=== PATIENT | female | born 1935 | race African-American/Black ===

== ENCOUNTER 2022-07-22 20:39 | Inpatient (IN) ==
[2022-07-22] MEDS ORDERED: SODIUM CHLORIDE 0.9% 2,050 ML IV ONE (21:56)
[2022-07-23 00:19] LABS: Basophils % 0.1 % (0.0-0.8); Immature Granulocytes % 1.5 %; Immature Granulocytes Absolute 0.39 #; Lymphocytes # 0.6 10*3/uL (1.4-4.0); Lymphocytes % 2.3 % (21.3-54.2); Mean Corpuscular HGB Conc 27.2 GM/DL (32-36); Mean Corpuscular Volume 56.6 FL (87-102); Mean Platelet Volume 10.3 FL (9.6-12.0); Monocytes # 0.6 10*3/uL (0.11-0.8); Monocytes % 2.1 % (1.7-12.7); NRBC # 1.36 10*3/uL; Platelet Count 606 T/CUMM (130-400); Red Blood Count 1.82 MC/CUMM (3.8-5.5); White Blood Count 25.67 T/CUMM (4-12)
[2022-07-23 00:22] LABS: Hemoglobin 2.8 GM/DL (12.0-16.0)
[2022-07-23 00:23] LABS: Hematocrit 10.3 VOL% (35.7-47.0)
[2022-07-23 00:25] LABS: Alanine Aminotransferase 312 U/L (13-56); Albumin 2.5 G/DL (3.4-5.0); Alkaline Phosphatase 62 U/L (45-117); Aspartate Amino Transferase 661 U/L (0-37); Bilirubin,Total < 0.39 MG/DL (0.20-1.00); Blood Urea Nitrogen 70 MG/DL (7-18); Calcium 9.3 MG/DL (8.5-10.1); Carbon Dioxide 23 MMOL/L (21-32); Chloride 99 MMOL/L (98-107); Glucose 157 MG/DL (74-106); Osmolality,Calculated 296.8 MOS/KG (273-304); Potassium 5.1 MMOL/L (3.5-5.1); Sodium 137 MMOL/L (136-145); Total Protein 5.8 G/DL (6.4-8.2)
[2022-07-23] MEDS ORDERED: SODIUM CHLORIDE 0.9% 1,000 ML IV PRN (00:26)
[2022-07-23 00:48] LABS: Lymphocytes 3 % (20-55); Nucleated Red Blood Cells 9 /100 WBC (0-5); Total Cells Counted 100
[2022-07-23 00:50] LABS: Hypochromia 2+; Microcytosis 2+; Platelet Estimate Increased; Polychromasia Few
[2022-07-23 00:51] LABS: Anisocytosis 2+
[2022-07-23] MEDS ORDERED: NOREPINEPHRINE 4 MG/4 ML VIAL IV ONE (02:33)
[2022-07-23] MEDS ORDERED: MIDAZOLAM 10 MG/2 ML VIAL ONE (02:43)
[2022-07-23] MEDS ORDERED: VECURONIUM 10 MG VIAL IV STA (02:45)
[2022-07-23] MEDS ORDERED: ETOMIDATE 20 MG/10 ML VIAL IV STA (02:45)
[2022-07-23 03:04] LABS: Arterial Base Excess iSTAT -3 MMOL/L (-2.5-2.5); Arterial Bicarbonate iSTAT 21.6 MMOL/L (20-26); Arterial O2 Saturation iSTAT 100 % (95-100); Arterial PCO2 iSTAT 31 MM HG (35-48); Arterial PO2 iSTAT 444 MM HG (80-95); Arterial Total CO2 iSTAT 23 MMO/L (23-27); Arterial pH iSTAT 7.449 (7.35-7.45)
[2022-07-23 03:10] LABS: Barbiturates Screen,Urine Negative (Negative); Benzodiazepines Screen,Urine Negative (Negative); Cannabinoid Screen,Urine Negative (Negative); Opiate Screen,Urine Negative (Negative); Phencyclidine Screen,Urine Negative (Negative)
[2022-07-23 03:11] LABS: Amorphous Crystals,Urine Occasional /HPF (Few); Bacteria,Urine Occasional /HPF (Few); Hyaline Casts,Urine 178 /LPF (0-3); Mucus,Urine Occasional /LPF (Occasional); RBC,Urine 7 /HPF (0-4); Squamous Epithelial Cell,Urine Moderate /HPF (0-10)
[2022-07-23 03:14] LABS: Glucose,Urine (UA) Negative (Negative); Ketones,Urine Negative (Negative); Nitrite,Urine Negative (Negative); Protein,Urine 30 mg/dL (Negative); Urine Appearance Slightly Cloudy (Clear); Urine Color Yellow (Yellow); Urine Specific Gravity > 1.030 (1.001-1.035); Urine pH 5.5 (4.5-8.0)
[2022-07-23 03:15] LABS: Bilirubin,Urine Negative (Negative); Blood, Urine Trace mg/dL (Negative); Urine Urobilinogen 0.2 eU/dL (<2.0)
[2022-07-23] MEDS ORDERED: diphenhydrAMINE 50 MG/1 ML VIAL ONE (04:32)
[2022-07-23] MEDS ORDERED: methylPREDNISolone SOD SUC 125 MG/2 ML VIAL ONE (04:32)
[2022-07-23] MEDS ORDERED: FAMOTIDINE 20 MG/2 ML VIAL IV ONE (04:33)
[2022-07-23] MEDS ORDERED: ALBUTEROL 2.5 MG/3 ML NEB RESP TX PRN (05:23)
[2022-07-23] MEDS ORDERED: ONDANSETRON 4 MG/2 ML VIAL IV PRN (05:24)
[2022-07-23] MEDS ORDERED: LACTULOSE 20 GM/30 ML UDCUP PO PRN (05:24)
[2022-07-23] MEDS ORDERED: ACETAMINOPHEN 325 MG TABLET PO PRN (05:24)
[2022-07-23] MEDS ORDERED: VANCOMYCIN INJ 1,000 MG in SODIUM CHLORIDE 0.9% 250 ML IV PRN (05:30)
[2022-07-23] MEDS ORDERED: PIPERACILLIN/TAZOBACTAM 3,375 MG in SODIUM CHLORIDE 0.9% 100 ML IV SCH (06:00)
[2022-07-23] MEDS ORDERED: VANCOMYCIN INJ 1,750 MG in SODIUM CHLORIDE 0.9% 500 ML IV ONE (06:30)
[2022-07-23] MEDS ORDERED: DEXTROSE 10% 250 ML BAG IV PRN (06:49)
[2022-07-23] MEDS ORDERED: GLUCAGON 1 MG VIAL IM PRN (06:49)
[2022-07-23] MEDS ORDERED: DEXTROSE 50% 25 GM/50 ML VIAL IV PRN (06:49)
[2022-07-23 07:08] LABS: Basophils % 0.1 % (0.0-0.8); Hematocrit 21.3 VOL% (35.7-47.0); Hemoglobin 6.6 GM/DL (12.0-16.0); Immature Granulocytes % 1.9 %; Immature Granulocytes Absolute 0.48 #; Lymphocytes # 0.1 10*3/uL (1.4-4.0); Lymphocytes % 0.4 % (21.3-54.2); Mean Corpuscular Volume 70.5 FL (87-102); Mean Platelet Volume 10.1 FL (9.6-12.0); Monocytes # 0.5 10*3/uL (0.11-0.8); Monocytes % 2.1 % (1.7-12.7); NRBC # 3.03 10*3/uL; Neutrophils % 95.5 % (38.7-73.9); Platelet Count 561 T/CUMM (130-400); Red Blood Count 3.02 MC/CUMM (3.8-5.5)
[2022-07-23 07:17] LABS: INR 1.3; PT Patient Result 14.2 SECS (10.1-12.1)
[2022-07-23 07:29] LABS: Hypochromia 1+; Lymphocytes 3 % (20-55); Microcytosis 1+; Nucleated Red Blood Cells 18 /100 WBC (0-5); Platelet Estimate Increased; Total Cells Counted 100
[2022-07-23] MEDS: PIPERACILLIN/TAZOBACTAM 3,375 MG in SODIUM CHLORIDE 0.9% 100 ML IV SCH ×3 (07:38→17:30)
[2022-07-23] MEDS: LACTATED RINGERS 1,000 ML IV SCH ×4 (08:12→21:38)
[2022-07-23] MEDS: MIDAZOLAM DRIP 100 MG/100 ML PREMIX IV PRN (09:00)
[2022-07-23] MEDS ORDERED: PANTOPRAZOLE 40 MG VIAL IV SCH (09:00)
[2022-07-23] MEDS: PANTOPRAZOLE 40 MG VIAL IV SCH ×2 (10:00→20:32)
[2022-07-23] MEDS: INSULIN LISPRO 100 UNIT/ML SUBCUT SCH ×2 (14:56→19:11)
[2022-07-23] MEDS ORDERED: CALCIUM GLUCONATE RIDER 1,000 MG/50 ML PREMIX IV ONE (18:45)
[2022-07-23 19:00] LABS: Hematocrit 33.3 VOL% (35.7-47.0)
[2022-07-23 19:01] LABS: Hemoglobin 10.6 GM/DL (12.0-16.0)
[2022-07-23] MEDS: NOREPINEPHRINE DRIP 8 MG/250 ML PREMIX IV PRN ×2 (19:54→20:42)
[2022-07-23] MEDS: MENTHOL/ZINC OXIDE OINT 71 GM JAR TOP SCH (20:32)
[2022-07-24] MEDS: INSULIN LISPRO 100 UNIT/ML SUBCUT SCH ×4 (00:57→17:58)
[2022-07-24] MEDS: PIPERACILLIN/TAZOBACTAM 3,375 MG in SODIUM CHLORIDE 0.9% 100 ML IV SCH ×3 (01:46→17:27)
[2022-07-24] MEDS: LACTATED RINGERS 1,000 ML IV SCH ×3 (03:10→11:30)
[2022-07-24] MEDS: NOREPINEPHRINE DRIP 8 MG/250 ML PREMIX IV PRN ×2 (03:11→09:47)
[2022-07-24 04:18] LABS: Basophils % 0.1 % (0.0-0.8); Hematocrit 33.9 VOL% (35.7-47.0); Hemoglobin 10.7 GM/DL (12.0-16.0); Immature Granulocytes % 1.6 %; Immature Granulocytes Absolute 0.47 #; Lymphocytes # 3.1 10*3/uL (1.4-4.0); Lymphocytes % 10.5 % (21.3-54.2); Mean Corpuscular HGB Conc 31.6 GM/DL (32-36); Mean Corpuscular Volume 74.3 FL (87-102); Mean Platelet Volume 9.8 FL (9.6-12.0); Monocytes # 0.8 10*3/uL (0.11-0.8); Monocytes % 2.5 % (1.7-12.7); NRBC # 0.79 10*3/uL; Neutrophils % 85.3 % (38.7-73.9); Platelet Count 479 T/CUMM (130-400); Red Blood Count 4.56 MC/CUMM (3.8-5.5); White Blood Count 30.02 T/CUMM (4-12)
[2022-07-24 04:33] LABS: ABG Base Excess -1.1 MMOL/L (-2.5-2.5); ABG HCO3 23.5 MMOL/L (20-26); ABG Oxygen Saturation 99.8 % (95-100); ABG PCO2 26.4 MM HG (35-48); ABG PH 7.506 (7.35-7.45); ABG TCO2 18.6 MMOL/L (23-27)
[2022-07-24 04:34] LABS: Albumin 2.3 G/DL (3.4-5.0); Bilirubin,Total 2.3 MG/DL (0.20-1.00); Calcium 8.8 MG/DL (8.5-10.1); Osmolality,Calculated 306.7 MOS/KG (273-304); Potassium 4.2 MMOL/L (3.5-5.1); Total Protein 5.8 G/DL (6.4-8.2)
[2022-07-24 04:52] LABS: Acanthocytes Few; Hypochromia 1+; Lymphocytes 10 % (20-55); Microcytosis 1+; Nucleated Red Blood Cells 29 /100 WBC (0-5); Polychromasia Slight; Target Cells Slight; Total Cells Counted 100
[2022-07-24 04:53] LABS: Burr Cells Few; Spherocytes Slight
[2022-07-24 04:54] LABS: Platelet Estimate Increased
[2022-07-24 04:55] LABS: Anisocytosis 1+
[2022-07-24] MEDS ORDERED: FUROSEMIDE 40 MG/4 ML VIAL IV ONE (09:18)
[2022-07-24] MEDS: MENTHOL/ZINC OXIDE OINT 71 GM JAR TOP SCH ×2 (09:58→20:43)
[2022-07-24] MEDS: PANTOPRAZOLE 40 MG VIAL IV SCH ×2 (09:59→20:45)
[2022-07-24] MEDS ORDERED: propofoL 200 MG/20 ML VIAL IV ONE (11:13)
[2022-07-24] MEDS ORDERED: ETOMIDATE 20 MG/10 ML VIAL IV ONE (11:13)
[2022-07-24] MEDS ORDERED: BISACODYL 5 MG TABLET NG SCH (11:30)
[2022-07-24] MEDS: SODIUM HYPOCHLORITE 0.25% IRRIG 473 ML BOTTLE TOP SCH (12:26)
[2022-07-24] MEDS: MIDAZOLAM DRIP 100 MG/100 ML PREMIX IV PRN (14:11)
[2022-07-24] MEDS ORDERED: VANCOMYCIN INJ 1,000 MG in SODIUM CHLORIDE 0.9% 250 ML IV ONE (15:00)
[2022-07-25] MEDS: INSULIN LISPRO 100 UNIT/ML SUBCUT SCH ×4 (00:31→18:32)
[2022-07-25] MEDS: PIPERACILLIN/TAZOBACTAM 3,375 MG in SODIUM CHLORIDE 0.9% 100 ML IV SCH ×3 (02:01→16:56)
[2022-07-25] MEDS: NOREPINEPHRINE DRIP 8 MG/250 ML PREMIX IV PRN (04:05)
[2022-07-25 05:03] LABS: Arterial Base Excess iSTAT 1 MMOL/L (-2.5-2.5); Arterial Bicarbonate iSTAT 24.2 MMOL/L (20-26); Arterial O2 Saturation iSTAT 100 % (95-100); Arterial PCO2 iSTAT 32 MM HG (35-48); Arterial PO2 iSTAT 209 MM HG (80-95); Arterial Total CO2 iSTAT 25 MMO/L (23-27); Arterial pH iSTAT 7.484 (7.35-7.45)
[2022-07-25 05:45] LABS: Basophils % 0.1 % (0.0-0.8); Hematocrit 30.1 VOL% (35.7-47.0); Hemoglobin 9.2 GM/DL (12.0-16.0); Immature Granulocytes % 0.8 %; Immature Granulocytes Absolute 0.19 #; Lymphocytes # 0.5 10*3/uL (1.4-4.0); Mean Corpuscular HGB Conc 30.6 GM/DL (32-36); Mean Corpuscular Volume 77.2 FL (87-102); Monocytes # 0.6 10*3/uL (0.11-0.8); Monocytes % 2.3 % (1.7-12.7); NRBC # 0.64 10*3/uL; Neutrophils % 94.8 % (38.7-73.9); Platelet Count 294 T/CUMM (130-400); White Blood Count 24.33 T/CUMM (4-12)
[2022-07-25 06:22] LABS: Anisocytosis 2+; Band Neutrophils 1 % (0-10); Burr Cells 1+; Lymphocytes 4 % (20-55); Nucleated Red Blood Cells 6 /100 WBC (0-5); Platelet Estimate Normal; Total Cells Counted 100
[2022-07-25 06:23] LABS: Polychromasia Slight; Target Cells Few
[2022-07-25 06:28] LABS: Albumin 1.9 G/DL (3.4-5.0); Bilirubin,Total 1.7 MG/DL (0.20-1.00); Calcium 8.3 MG/DL (8.5-10.1); Potassium 3.5 MMOL/L (3.5-5.1)
[2022-07-25] MEDS: LACTATED RINGERS 1,000 ML IV SCH (07:49)
[2022-07-25] MEDS ORDERED: VANCOMYCIN INJ 1,000 MG in SODIUM CHLORIDE 0.9% 250 ML IV ONE (08:00)
[2022-07-25] MEDS: PANTOPRAZOLE 40 MG VIAL IV SCH ×2 (08:47→21:01)
[2022-07-25] MEDS: SODIUM HYPOCHLORITE 0.25% IRRIG 473 ML BOTTLE TOP SCH (08:49)
[2022-07-25] MEDS: MENTHOL/ZINC OXIDE OINT 71 GM JAR TOP SCH ×2 (08:49→21:01)
[2022-07-25] MEDS: ALBUTEROL/IPRATROPIUM 3 ML NEB RESP TX SCH ×2 (13:11→19:27)
[2022-07-25] MEDS: MIDAZOLAM DRIP 100 MG/100 ML PREMIX IV PRN (17:40)
[2022-07-25] MEDS ORDERED: METOPROLOL TARTRATE 5 MG/5 ML VIAL IV STA (23:41)
[2022-07-25] MEDS ORDERED: DILTIAZEM INJ 100 MG in SODIUM CHLORIDE 0.9% 100 ML IV SCH (23:59)
[2022-07-25] MEDS ORDERED: DILTIAZEM 25 MG/5 ML VIAL IV ONE (23:59)
[2022-07-26 00:15] LABS: Potassium 3.4 MMOL/L (3.5-5.1)
[2022-07-26] MEDS: ALBUTEROL/IPRATROPIUM 3 ML NEB RESP TX SCH ×4 (00:34→19:02)
[2022-07-26] MEDS: POTASSIUM CHLORIDE RIDER 20 MEQ/100 ML PREMIX IV PRN (00:38)
[2022-07-26] MEDS: INSULIN LISPRO 100 UNIT/ML SUBCUT SCH ×5 (01:04→23:56)
[2022-07-26] MEDS ORDERED: POTASSIUM CHLORIDE RIDER 10 MEQ/100 ML PREMIX IV PRN (02:37)
[2022-07-26] MEDS ORDERED: POTASSIUM CHLORIDE RIDER 10 MEQ/100 ML PREMIX IV ONE (02:39)
[2022-07-26 03:26] LABS: Arterial Base Excess iSTAT -1 MMOL/L (-2.5-2.5); Arterial Bicarbonate iSTAT 23.2 MMOL/L (20-26); Arterial O2 Saturation iSTAT 99 % (95-100); Arterial PCO2 iSTAT 37 MM HG (35-48); Arterial PO2 iSTAT 152 MM HG (80-95); Arterial Total CO2 iSTAT 24 MMO/L (23-27); Arterial pH iSTAT 7.401 (7.35-7.45)
[2022-07-26 03:41] LABS: Basophils % 0.1 % (0.0-0.8); Hemoglobin 9.8 GM/DL (12.0-16.0); Immature Granulocytes % 1.2 %; Immature Granulocytes Absolute 0.29 #; Lymphocytes # 0.3 10*3/uL (1.4-4.0); Lymphocytes % 1.1 % (21.3-54.2); Mean Corpuscular HGB Conc 29.7 GM/DL (32-36); Mean Corpuscular Volume 79.3 FL (87-102); Mean Platelet Volume 9.9 FL (9.6-12.0); Monocytes # 0.6 10*3/uL (0.11-0.8); Monocytes % 2.2 % (1.7-12.7); NRBC # 0.53 10*3/uL; Neutrophils % 95.4 % (38.7-73.9); Platelet Count 260 T/CUMM (130-400); Red Blood Count 4.16 MC/CUMM (3.8-5.5); White Blood Count 25.01 T/CUMM (4-12)
[2022-07-26 04:11] LABS: Bilirubin,Total 1.8 MG/DL (0.20-1.00); Calcium 8.5 MG/DL (8.5-10.1); Osmolality,Calculated 302.7 MOS/KG (273-304); Potassium 4.1 MMOL/L (3.5-5.1); Total Protein 4.9 G/DL (6.4-8.2)
[2022-07-26] MEDS: LACTATED RINGERS 1,000 ML IV SCH (04:19)
[2022-07-26] MEDS: PIPERACILLIN/TAZOBACTAM 3,375 MG in SODIUM CHLORIDE 0.9% 100 ML IV SCH ×3 (04:19→20:57)
[2022-07-26 05:18] LABS: Anisocytosis 1+; Band Neutrophils 2 % (0-10); Lymphocytes 2 % (20-55); Nucleated Red Blood Cells 3 /100 WBC (0-5); Platelet Estimate Adequate; Poikilocytosis 1+; Total Cells Counted 100
[2022-07-26 05:19] LABS: Burr Cells 1+; Polychromasia 1+
[2022-07-26] MEDS: SODIUM HYPOCHLORITE 0.25% IRRIG 473 ML BOTTLE TOP SCH (08:30)
[2022-07-26] MEDS: BISACODYL 5 MG TABLET NG SCH ×2 (08:30→16:01)
[2022-07-26] MEDS: PANTOPRAZOLE 40 MG VIAL IV SCH ×2 (08:30→20:55)
[2022-07-26] MEDS: MENTHOL/ZINC OXIDE OINT 71 GM JAR TOP SCH ×2 (08:30→20:59)
[2022-07-26] MEDS ORDERED: VANCOMYCIN INJ 1,000 MG in SODIUM CHLORIDE 0.9% 250 ML IV ONE (09:00)
[2022-07-26] MEDS ORDERED: POLYETHYLENE GLYCOL 3350/ELECTROLYTES 4,000 ML BOTTLE NG ONE (16:00)
[2022-07-26] MEDS: MIDAZOLAM DRIP 100 MG/100 ML PREMIX IV PRN (18:22)
[2022-07-27] MEDS: BISACODYL 5 MG TABLET NG SCH (00:08)
[2022-07-27] MEDS: ALBUTEROL/IPRATROPIUM 3 ML NEB RESP TX SCH ×4 (00:55→19:10)
[2022-07-27] MEDS ORDERED: METOPROLOL TARTRATE 5 MG/5 ML VIAL IV ONE (02:00)
[2022-07-27 04:32] LABS: Arterial Base Excess iSTAT 0 MMOL/L (-2.5-2.5); Arterial Bicarbonate iSTAT 24.7 MMOL/L (20-26); Arterial PCO2 iSTAT 39 MM HG (35-48); Arterial Total CO2 iSTAT 26 MMO/L (23-27); Arterial pH iSTAT 7.411 (7.35-7.45)
[2022-07-27 04:47] LABS: Hematocrit 28.8 VOL% (35.7-47.0); Hemoglobin 8.4 GM/DL (12.0-16.0); Immature Granulocytes % 1.1 %; Immature Granulocytes Absolute 0.25 #; Lymphocytes # 0.2 10*3/uL (1.4-4.0); Lymphocytes % 1.1 % (21.3-54.2); Mean Corpuscular HGB Conc 29.2 GM/DL (32-36); Mean Platelet Volume 9.9 FL (9.6-12.0); Monocytes # 0.5 10*3/uL (0.11-0.8); Monocytes % 2.3 % (1.7-12.7); NRBC # 0.25 10*3/uL; Neutrophils % 95.5 % (38.7-73.9); Platelet Count 217 T/CUMM (130-400); White Blood Count 21.82 T/CUMM (4-12)
[2022-07-27 05:01] LABS: Calcium 8.2 MG/DL (8.5-10.1); Osmolality,Calculated 303.4 MOS/KG (273-304); Potassium 3.3 MMOL/L (3.5-5.1)
[2022-07-27] MEDS: PIPERACILLIN/TAZOBACTAM 3,375 MG in SODIUM CHLORIDE 0.9% 100 ML IV SCH ×3 (05:02→21:23)
[2022-07-27 05:07] LABS: Nucleated Red Blood Cells 2 /100 WBC (0-5); Platelet Estimate Adequate; Total Cells Counted 100
[2022-07-27 05:08] LABS: Hypochromia Slight; Microcytosis Slight
[2022-07-27] MEDS: INSULIN LISPRO 100 UNIT/ML SUBCUT SCH ×3 (05:48→17:22)
[2022-07-27] MEDS: POTASSIUM CHLORIDE RIDER 20 MEQ/100 ML PREMIX IV PRN ×2 (06:50→08:30)
[2022-07-27] MEDS: PANTOPRAZOLE 40 MG VIAL IV SCH ×2 (08:30→21:25)
[2022-07-27] MEDS: MENTHOL/ZINC OXIDE OINT 71 GM JAR TOP SCH ×2 (08:33→21:27)
[2022-07-27] MEDS: SODIUM HYPOCHLORITE 0.25% IRRIG 473 ML BOTTLE TOP SCH (08:33)
[2022-07-27] MEDS ORDERED: ETOMIDATE 20 MG/10 ML VIAL IV ONE (09:10)
[2022-07-27] MEDS ORDERED: ROCURONIUM 50 MG/5 ML VIAL IV ONE (11:00)
[2022-07-27] MEDS ORDERED: PHENYLEPHRINE 10 MG/1 ML VIAL IV ONE (11:01)
[2022-07-27] MEDS ORDERED: SEVOFLURANE 1 UNIT/15 MINUTE INH ONE (11:12)
[2022-07-27] MEDS: VANCOMYCIN INJ 1,000 MG in SODIUM CHLORIDE 0.9% 250 ML IV SCH (13:58)
[2022-07-27] MEDS: HYDROmorphone 1 MG/1 ML SYRINGE IV PRN (13:58)
[2022-07-27] MEDS: MIDAZOLAM DRIP 100 MG/100 ML PREMIX IV PRN (15:49)
[2022-07-28] MEDS: INSULIN LISPRO 100 UNIT/ML SUBCUT SCH ×4 (00:29→19:00)
[2022-07-28 03:55] LABS: Arterial Bicarbonate iSTAT 25.7 MMOL/L (20-26); Arterial pH iSTAT 7.428 (7.35-7.45)
[2022-07-28 04:03] LABS: Basophils % 0.1 % (0.0-0.8); Eosinophils # 0.1 10*3/uL (0.0-0.87); Eosinophils % 0.3 % (0.00-10.9); Hematocrit 27.2 VOL% (35.7-47.0); Hemoglobin 8.1 GM/DL (12.0-16.0); Immature Granulocytes % 1.2 %; Immature Granulocytes Absolute 0.23 #; Lymphocytes # 0.3 10*3/uL (1.4-4.0); Lymphocytes % 1.3 % (21.3-54.2); Mean Corpuscular HGB Conc 29.8 GM/DL (32-36); Mean Corpuscular Volume 79.5 FL (87-102); Mean Platelet Volume 9.5 FL (9.6-12.0); Monocytes # 0.5 10*3/uL (0.11-0.8); Monocytes % 2.7 % (1.7-12.7); NRBC # 0.28 10*3/uL; Neutrophils % 94.4 % (38.7-73.9); Platelet Count 191 T/CUMM (130-400); Red Blood Count 3.42 MC/CUMM (3.8-5.5); White Blood Count 19.36 T/CUMM (4-12)
[2022-07-28 04:18] LABS: Albumin 1.7 G/DL (3.4-5.0); Bilirubin,Total 1.3 MG/DL (0.20-1.00); Calcium 8.2 MG/DL (8.5-10.1); Osmolality,Calculated 296.4 MOS/KG (273-304); Potassium 3.4 MMOL/L (3.5-5.1); Total Protein 4.7 G/DL (6.4-8.2)
[2022-07-28 04:43] LABS: Anisocytosis 1+; Band Neutrophils 1 % (0-10); Hypochromia 1+; Lymphocytes 1 % (20-55); Microcytosis 1+; Total Cells Counted 100
[2022-07-28 04:44] LABS: Platelet Estimate Adequate; Polychromasia Slight; Spherocytes Slight; Target Cells Slight
[2022-07-28] MEDS: PIPERACILLIN/TAZOBACTAM 3,375 MG in SODIUM CHLORIDE 0.9% 100 ML IV SCH ×3 (05:16→21:17)
[2022-07-28] MEDS: POTASSIUM CHLORIDE RIDER 20 MEQ/100 ML PREMIX IV PRN (05:17)
[2022-07-28] MEDS: NOREPINEPHRINE DRIP 8 MG/250 ML PREMIX IV PRN (07:15)
[2022-07-28] MEDS: ALBUTEROL/IPRATROPIUM 3 ML NEB RESP TX SCH ×4 (07:22→19:14)
[2022-07-28] MEDS ORDERED: MAGNESIUM SULF RIDER 4 GM/100 ML PREMIX IV PRN (07:50)
[2022-07-28] MEDS ORDERED: MAGNESIUM SULF RIDER 2 GM/50 ML PREMIX IV PRN (07:50)
[2022-07-28] MEDS: MIDAZOLAM DRIP 100 MG/100 ML PREMIX IV PRN (08:21)
[2022-07-28] MEDS ORDERED: POTASSIUM PHOSPHATE 30 MMOL in SODIUM CHLORIDE 0.9% 250 ML IV ONE (09:00)
[2022-07-28] MEDS: MENTHOL/ZINC OXIDE OINT 71 GM JAR TOP SCH ×2 (09:13→21:16)
[2022-07-28] MEDS: PANTOPRAZOLE 40 MG VIAL IV SCH ×2 (09:13→21:15)
[2022-07-28] MEDS: HYDROCORTISONE 100 MG VIAL IV SCH ×2 (09:23→17:01)
[2022-07-28] MEDS: HYDROmorphone 1 MG/1 ML SYRINGE IV PRN (09:23)
[2022-07-28] MEDS: SODIUM HYPOCHLORITE 0.25% IRRIG 473 ML BOTTLE TOP SCH (09:33)
[2022-07-28] MEDS: VANCOMYCIN INJ 1,000 MG in SODIUM CHLORIDE 0.9% 250 ML IV SCH (15:00)
[2022-07-29] MEDS: INSULIN LISPRO 100 UNIT/ML SUBCUT SCH ×4 (00:57→17:35)
[2022-07-29] MEDS: HYDROCORTISONE 100 MG VIAL IV SCH ×3 (00:57→16:56)
[2022-07-29] MEDS: ALBUTEROL/IPRATROPIUM 3 ML NEB RESP TX SCH ×4 (01:50→19:30)
[2022-07-29] MEDS: NOREPINEPHRINE DRIP 8 MG/250 ML PREMIX IV PRN (02:30)
[2022-07-29 04:00] LABS: ABG Base Excess 0.2 MMOL/L (-2.5-2.5); ABG HCO3 24.7 MMOL/L (20-26); ABG Oxygen Saturation 99.4 % (95-100); ABG PCO2 39.1 MM HG (35-48)
[2022-07-29] MEDS: PIPERACILLIN/TAZOBACTAM 3,375 MG in SODIUM CHLORIDE 0.9% 100 ML IV SCH ×3 (04:05→20:58)
[2022-07-29 04:07] LABS: Albumin 1.8 G/DL (3.4-5.0); Calcium 8.4 MG/DL (8.5-10.1); Osmolality,Calculated 299.6 MOS/KG (273-304); Potassium 4.5 MMOL/L (3.5-5.1); Total Protein 5.3 G/DL (6.4-8.2)
[2022-07-29 04:16] LABS: Basophils % 0.1 % (0.0-0.8); Hematocrit 28.7 VOL% (35.7-47.0); Hemoglobin 8.2 GM/DL (12.0-16.0); Immature Granulocytes % 2.1 %; Immature Granulocytes Absolute 0.53 #; Lymphocytes # 0.1 10*3/uL (1.4-4.0); Lymphocytes % 0.6 % (21.3-54.2); Mean Corpuscular HGB Conc 28.6 GM/DL (32-36); Mean Corpuscular Volume 81.5 FL (87-102); Monocytes # 0.6 10*3/uL (0.11-0.8); Monocytes % 2.3 % (1.7-12.7); NRBC # 0.21 10*3/uL; Neutrophils % 94.9 % (38.7-73.9); Platelet Count 211 T/CUMM (130-400); Red Blood Count 3.52 MC/CUMM (3.8-5.5); White Blood Count 25.22 T/CUMM (4-12)
[2022-07-29 04:33] LABS: Hypochromia Slight; Microcytosis Slight; Nucleated Red Blood Cells 1 /100 WBC (0-5); Platelet Estimate Adequate; Total Cells Counted 100
[2022-07-29] MEDS: MIDAZOLAM DRIP 100 MG/100 ML PREMIX IV PRN (05:37)
[2022-07-29] MEDS: MENTHOL/ZINC OXIDE OINT 71 GM JAR TOP SCH ×2 (08:22→20:58)
[2022-07-29] MEDS: SODIUM HYPOCHLORITE 0.25% IRRIG 473 ML BOTTLE TOP SCH (08:22)
[2022-07-29] MEDS: PANTOPRAZOLE 40 MG VIAL IV SCH ×2 (08:22→20:58)
[2022-07-29] MEDS: HYDROmorphone 1 MG/1 ML SYRINGE IV PRN ×2 (08:28→13:33)
[2022-07-29] MEDS ORDERED: MIDAZOLAM 2 MG/2 ML VIAL ONE (09:24)
[2022-07-29] MEDS ORDERED: PHENYLEPHRINE 1 MG/10 ML SYRINGE IV ONE (11:03)
[2022-07-29] MEDS ORDERED: SEVOFLURANE 1 UNIT/15 MINUTE INH ONE ×2 (11:03→12:00)
[2022-07-29] MEDS ORDERED: ROCURONIUM 50 MG/5 ML VIAL IV ONE (11:03)
[2022-07-29] MEDS: VANCOMYCIN INJ 1,000 MG in SODIUM CHLORIDE 0.9% 250 ML IV SCH (13:21)
[2022-07-30] MEDS: HYDROmorphone 1 MG/1 ML SYRINGE IV PRN ×4 (00:16→23:20)
[2022-07-30] MEDS: ALBUTEROL/IPRATROPIUM 3 ML NEB RESP TX SCH ×4 (00:37→19:10)
[2022-07-30] MEDS: INSULIN LISPRO 100 UNIT/ML SUBCUT SCH ×4 (00:59→18:17)
[2022-07-30] MEDS: HYDROCORTISONE 100 MG VIAL IV SCH ×3 (01:15→18:17)
[2022-07-30] MEDS: PIPERACILLIN/TAZOBACTAM 3,375 MG in SODIUM CHLORIDE 0.9% 100 ML IV SCH ×2 (03:50→11:04)
[2022-07-30 04:22] LABS: Arterial Base Excess iSTAT 1 MMOL/L (-2.5-2.5); Arterial Bicarbonate iSTAT 26.1 MMOL/L (20-26); Arterial O2 Saturation iSTAT 99 % (95-100); Arterial PCO2 iSTAT 42 MM HG (35-48); Arterial PO2 iSTAT 149 MM HG (80-95); Arterial Total CO2 iSTAT 27 MMO/L (23-27)
[2022-07-30 04:33] LABS: Basophils % 0.1 % (0.0-0.8); Hematocrit 24.9 VOL% (35.7-47.0); Hemoglobin 7.1 GM/DL (12.0-16.0); Immature Granulocytes % 1.6 %; Immature Granulocytes Absolute 0.31 #; Lymphocytes # 0.1 10*3/uL (1.4-4.0); Lymphocytes % 0.5 % (21.3-54.2); Mean Corpuscular HGB Conc 28.5 GM/DL (32-36); Mean Corpuscular Volume 83.8 FL (87-102); Mean Platelet Volume 10.5 FL (9.6-12.0); Monocytes # 0.5 10*3/uL (0.11-0.8); Monocytes % 2.6 % (1.7-12.7); NRBC # 0.08 10*3/uL; Neutrophils % 95.2 % (38.7-73.9); Platelet Count 177 T/CUMM (130-400); Red Blood Count 2.97 MC/CUMM (3.8-5.5); White Blood Count 18.88 T/CUMM (4-12)
[2022-07-30 04:58] LABS: Albumin 1.6 G/DL (3.4-5.0); Bilirubin,Total 1.1 MG/DL (0.20-1.00); Calcium 8.4 MG/DL (8.5-10.1); Osmolality,Calculated 299.6 MOS/KG (273-304); Potassium 4.3 MMOL/L (3.5-5.1); Total Protein 4.8 G/DL (6.4-8.2)
[2022-07-30 05:02] LABS: Eosinophils 1 % (0-10); Hypochromia Slight; Microcytosis Slight; Nucleated Red Blood Cells 1 /100 WBC (0-5); Platelet Estimate Adequate; Total Cells Counted 100
[2022-07-30] MEDS: MIDAZOLAM DRIP 100 MG/100 ML PREMIX IV PRN (05:20)
[2022-07-30] MEDS ORDERED: SODIUM CHLORIDE 0.9% 1,000 ML IV PRN (06:39)
[2022-07-30] MEDS ORDERED: FUROSEMIDE 40 MG/4 ML VIAL IV ONE (07:32)
[2022-07-30] MEDS: PANTOPRAZOLE 40 MG VIAL IV SCH ×2 (08:24→21:07)
[2022-07-30] MEDS: MENTHOL/ZINC OXIDE OINT 71 GM JAR TOP SCH ×2 (08:25→21:07)
[2022-07-30] MEDS: SODIUM HYPOCHLORITE 0.25% IRRIG 473 ML BOTTLE TOP SCH (08:25)
[2022-07-30] MEDS: dexmedeTOMIDine DRIP 400 MCG/100 ML PREMIX IV PRN ×2 (11:03→22:30)
[2022-07-31] MEDS: ALBUTEROL/IPRATROPIUM 3 ML NEB RESP TX SCH ×4 (01:00→20:10)
[2022-07-31] MEDS: INSULIN LISPRO 100 UNIT/ML SUBCUT SCH ×4 (01:37→18:59)
[2022-07-31] MEDS: HYDROCORTISONE 100 MG VIAL IV SCH ×2 (01:38→14:01)
[2022-07-31 04:20] LABS: Basophils % 0.1 % (0.0-0.8); Eosinophils % 0.1 % (0.00-10.9); Hematocrit 32.4 VOL% (35.7-47.0); Hemoglobin 9.5 GM/DL (12.0-16.0); Immature Granulocytes % 0.9 %; Immature Granulocytes Absolute 0.13 #; Lymphocytes # 0.2 10*3/uL (1.4-4.0); Lymphocytes % 1.2 % (21.3-54.2); Mean Corpuscular HGB Conc 29.3 GM/DL (32-36); Mean Corpuscular Volume 85.9 FL (87-102); Monocytes # 0.6 10*3/uL (0.11-0.8); Monocytes % 3.8 % (1.7-12.7); NRBC # 0.06 10*3/uL; Neutrophils % 93.9 % (38.7-73.9); Platelet Count 186 T/CUMM (130-400); Red Blood Count 3.77 MC/CUMM (3.8-5.5); Red Cell Distribution Width 31.8 % (9.3-17.3); White Blood Count 14.77 T/CUMM (4-12)
[2022-07-31 04:25] LABS: Nucleated Red Blood Cells 4 /100 WBC (0-5); Total Cells Counted 100
[2022-07-31 04:26] LABS: Hypochromia Slight; Microcytosis Slight; Platelet Estimate Adequate
[2022-07-31 04:28] LABS: Arterial Base Excess iSTAT 1 MMOL/L (-2.5-2.5); Arterial O2 Saturation iSTAT 99 % (95-100); Arterial PCO2 iSTAT 44 MM HG (35-48); Arterial PO2 iSTAT 159 MM HG (80-95); Arterial Total CO2 iSTAT 27 MMO/L (23-27); Arterial pH iSTAT 7.378 (7.35-7.45)
[2022-07-31] MEDS: HYDROmorphone 1 MG/1 ML SYRINGE IV PRN ×3 (06:29→23:00)
[2022-07-31] MEDS: dexmedeTOMIDine DRIP 400 MCG/100 ML PREMIX IV PRN ×2 (08:13→18:55)
[2022-07-31] MEDS: MENTHOL/ZINC OXIDE OINT 71 GM JAR TOP SCH ×2 (08:58→20:23)
[2022-07-31] MEDS: PANTOPRAZOLE 40 MG VIAL IV SCH ×2 (08:58→20:23)
[2022-08-01] MEDS: HYDROCORTISONE 100 MG VIAL IV SCH ×2 (01:24→13:37)
[2022-08-01] MEDS: INSULIN LISPRO 100 UNIT/ML SUBCUT SCH ×5 (01:25→23:59)
[2022-08-01] MEDS: ALBUTEROL/IPRATROPIUM 3 ML NEB RESP TX SCH ×4 (01:31→19:21)
[2022-08-01] MEDS: dexmedeTOMIDine DRIP 400 MCG/100 ML PREMIX IV PRN (03:02)
[2022-08-01 04:23] LABS: Arterial Base Excess iSTAT 2 MMOL/L (-2.5-2.5); Arterial Bicarbonate iSTAT 26.3 MMOL/L (20-26); Arterial O2 Saturation iSTAT 98 % (95-100); Arterial PCO2 iSTAT 41 MM HG (35-48); Arterial PO2 iSTAT 105 MM HG (80-95); Arterial Total CO2 iSTAT 28 MMO/L (23-27); Arterial pH iSTAT 7.419 (7.35-7.45)
[2022-08-01 04:51] LABS: Basophils % 0.1 % (0.0-0.8); Eosinophils % 0.2 % (0.00-10.9); Hemoglobin 9.5 GM/DL (12.0-16.0); Immature Granulocytes % 0.9 %; Lymphocytes # 0.3 10*3/uL (1.4-4.0); Lymphocytes % 2.8 % (21.3-54.2); Mean Corpuscular HGB Conc 28.8 GM/DL (32-36); Mean Corpuscular Volume 85.3 FL (87-102); Monocytes # 0.7 10*3/uL (0.11-0.8); Platelet Count 202 T/CUMM (130-400); Red Blood Count 3.87 MC/CUMM (3.8-5.5); White Blood Count 10.77 T/CUMM (4-12)
[2022-08-01] MEDS: HYDROmorphone 1 MG/1 ML SYRINGE IV PRN ×3 (05:09→21:17)
[2022-08-01 05:12] LABS: Albumin 1.8 G/DL (3.4-5.0); Bilirubin,Total 0.7 MG/DL (0.20-1.00); Calcium 8.7 MG/DL (8.5-10.1); Osmolality,Calculated 296.8 MOS/KG (273-304); Phosphorous 1.9 MG/DL (2.5-4.9); Potassium 4.6 MMOL/L (3.5-5.1)
[2022-08-01 05:22] LABS: Band Neutrophils 1 % (0-10); Lymphocytes 1 % (20-55); Total Cells Counted 100
[2022-08-01 05:23] LABS: Anisocytosis 1+; Hypochromia 1+; Microcytosis 1+; Polychromasia Slight; Target Cells Slight
[2022-08-01 05:24] LABS: Platelet Estimate Normal
[2022-08-01] MEDS ORDERED: POTASSIUM PHOSPHATE 30 MMOL in SODIUM CHLORIDE 0.9% 250 ML IV ONE (07:00)
[2022-08-01] MEDS: PANTOPRAZOLE 40 MG VIAL IV SCH ×2 (08:05→21:20)
[2022-08-01] MEDS: MENTHOL/ZINC OXIDE OINT 71 GM JAR TOP SCH ×2 (11:44→21:25)
[2022-08-01] MEDS ORDERED: POLYETHYLENE GLYCOL POWDER 17 GM PACK PO PRN (21:00)
[2022-08-02] MEDS: ALBUTEROL/IPRATROPIUM 3 ML NEB RESP TX SCH ×4 (00:12→19:07)
[2022-08-02] MEDS: HYDROCORTISONE 100 MG VIAL IV SCH (01:34)
[2022-08-02 04:03] LABS: ABG Base Excess 0.8 MMOL/L (-2.5-2.5); ABG HCO3 25.1 MMOL/L (20-26); ABG Oxygen Saturation 99.6 % (95-100); ABG PCO2 43.6 MM HG (35-48); ABG PH 7.384 (7.35-7.45); ABG TCO2 23.7 MMOL/L (23-27)
[2022-08-02 04:17] LABS: Basophils % 0.1 % (0.0-0.8); Eosinophils # 0.1 10*3/uL (0.0-0.87); Eosinophils % 0.4 % (0.00-10.9); Hematocrit 33.3 VOL% (35.7-47.0); Hemoglobin 9.8 GM/DL (12.0-16.0); Immature Granulocytes % 0.6 %; Immature Granulocytes Absolute 0.08 #; Lymphocytes # 0.6 10*3/uL (1.4-4.0); Lymphocytes % 4.4 % (21.3-54.2); Mean Corpuscular HGB Conc 29.4 GM/DL (32-36); Mean Corpuscular Volume 84.7 FL (87-102); Monocytes # 0.7 10*3/uL (0.11-0.8); Monocytes % 5.8 % (1.7-12.7); NRBC # 0.06 10*3/uL; Neutrophils % 88.7 % (38.7-73.9); Platelet Count 247 T/CUMM (130-400); Red Blood Count 3.93 MC/CUMM (3.8-5.5); Red Cell Distribution Width 31.4 % (9.3-17.3); White Blood Count 12.79 T/CUMM (4-12)
[2022-08-02 04:32] LABS: Basophils % 0.1 % (0.0-0.8); Eosinophils % 0.2 % (0.00-10.9); Hematocrit 32.7 VOL% (35.7-47.0); Hemoglobin 9.6 GM/DL (12.0-16.0); Immature Granulocytes % 0.6 %; Immature Granulocytes Absolute 0.08 #; Lymphocytes # 0.4 10*3/uL (1.4-4.0); Lymphocytes % 2.9 % (21.3-54.2); Mean Corpuscular HGB Conc 29.4 GM/DL (32-36); Mean Corpuscular Volume 85.2 FL (87-102); Monocytes # 0.6 10*3/uL (0.11-0.8); Monocytes % 4.8 % (1.7-12.7); NRBC # 0.04 10*3/uL; Neutrophils % 91.4 % (38.7-73.9); Platelet Count 234 T/CUMM (130-400); Red Blood Count 3.84 MC/CUMM (3.8-5.5); White Blood Count 12.88 T/CUMM (4-12)
[2022-08-02 04:40] LABS: Calcium 8.3 MG/DL (8.5-10.1); Osmolality,Calculated 291.1 MOS/KG (273-304); Potassium 4.4 MMOL/L (3.5-5.1)
[2022-08-02 04:54] LABS: Anisocytosis 1+; Band Neutrophils 3 % (0-10); Eosinophils 1 % (0-10); Hypochromia 1+; Lymphocytes 3 % (20-55); Microcytosis 1+; Polychromasia Slight; Total Cells Counted 100
[2022-08-02 04:55] LABS: Burr Cells Slight; Ovalocytes Slight; Platelet Estimate Normal; Target Cells Slight
[2022-08-02 04:59] LABS: Lymphocytes 1 % (20-55); Total Cells Counted 100
[2022-08-02 05:00] LABS: Anisocytosis 1+; Hypochromia 1+; Microcytosis 1+; Ovalocytes Slight; Polychromasia Slight; Target Cells Slight
[2022-08-02 05:01] LABS: Burr Cells Slight
[2022-08-02 05:02] LABS: Platelet Estimate Normal
[2022-08-02] MEDS: INSULIN LISPRO 100 UNIT/ML SUBCUT SCH ×3 (06:22→18:14)
[2022-08-02] MEDS: PANTOPRAZOLE 40 MG VIAL IV SCH ×2 (09:50→21:44)
[2022-08-02] MEDS: MENTHOL/ZINC OXIDE OINT 71 GM JAR TOP SCH ×2 (10:10→21:44)
[2022-08-03] MEDS: ALBUTEROL/IPRATROPIUM 3 ML NEB RESP TX SCH ×4 (01:47→20:05)
[2022-08-03] MEDS: INSULIN LISPRO 100 UNIT/ML SUBCUT SCH ×4 (02:34→17:45)
[2022-08-03 04:30] LABS: Basophils % 0.1 % (0.0-0.8); Eosinophils # 0.1 10*3/uL (0.0-0.87); Eosinophils % 0.5 % (0.00-10.9); Hematocrit 33.6 VOL% (35.7-47.0); Hemoglobin 10.1 GM/DL (12.0-16.0); Immature Granulocytes % 0.7 %; Immature Granulocytes Absolute 0.08 #; Lymphocytes # 0.6 10*3/uL (1.4-4.0); Lymphocytes % 5.7 % (21.3-54.2); Mean Corpuscular HGB Conc 30.1 GM/DL (32-36); Mean Corpuscular Volume 83.6 FL (87-102); Monocytes # 0.6 10*3/uL (0.11-0.8); Monocytes % 5.2 % (1.7-12.7); NRBC # 0.02 10*3/uL; Neutrophils % 87.8 % (38.7-73.9); Platelet Count 259 T/CUMM (130-400); Red Blood Count 4.02 MC/CUMM (3.8-5.5); Red Cell Distribution Width 31.2 % (9.3-17.3); White Blood Count 10.89 T/CUMM (4-12)
[2022-08-03 04:50] LABS: Hypochromia 1+; Microcytosis 1+; Ovalocytes Slight; Target Cells Slight
[2022-08-03 04:51] LABS: Anisocytosis 1+; Platelet Estimate Normal; Polychromasia Slight; Tear Drop Cells Slight
[2022-08-03 05:02] LABS: Albumin 1.6 G/DL (3.4-5.0); Bilirubin,Total 0.7 MG/DL (0.20-1.00); Calcium 8.5 MG/DL (8.5-10.1); Osmolality,Calculated 288.7 MOS/KG (273-304); Potassium 3.9 MMOL/L (3.5-5.1); Total Protein 4.8 G/DL (6.4-8.2)
[2022-08-03] MEDS: PANTOPRAZOLE 40 MG VIAL IV SCH ×2 (10:21→20:52)
[2022-08-03] MEDS: MENTHOL/ZINC OXIDE OINT 71 GM JAR TOP SCH ×2 (10:29→20:52)
[2022-08-04] MEDS: ALBUTEROL/IPRATROPIUM 3 ML NEB RESP TX SCH ×4 (00:08→21:08)
[2022-08-04] MEDS: INSULIN LISPRO 100 UNIT/ML SUBCUT SCH ×4 (00:46→18:38)
[2022-08-04 04:28] LABS: Basophils % 0.1 % (0.0-0.8); Eosinophils % 0.1 % (0.00-10.9); Hemoglobin 10.2 GM/DL (12.0-16.0); Immature Granulocytes % 0.7 %; Immature Granulocytes Absolute 0.09 #; Lymphocytes # 0.5 10*3/uL (1.4-4.0); Lymphocytes % 3.8 % (21.3-54.2); Mean Corpuscular Volume 84.4 FL (87-102); Mean Platelet Volume 9.9 FL (9.6-12.0); Monocytes # 0.6 10*3/uL (0.11-0.8); Monocytes % 4.3 % (1.7-12.7); Platelet Count 317 T/CUMM (130-400); Red Blood Count 4.03 MC/CUMM (3.8-5.5); White Blood Count 13.76 T/CUMM (4-12)
[2022-08-04 04:49] LABS: Lymphocytes 3 % (20-55); Target Cells Slight; Total Cells Counted 100
[2022-08-04 04:50] LABS: Anisocytosis 1+; Hypochromia 1+; Microcytosis 1+
[2022-08-04 04:51] LABS: Platelet Estimate Normal
[2022-08-04 08:27] LABS: Calcium 9.1 MG/DL (8.5-10.1); Osmolality,Calculated 289.8 MOS/KG (273-304); Potassium 4.1 MMOL/L (3.5-5.1)
[2022-08-04] MEDS: PANTOPRAZOLE 40 MG VIAL IV SCH ×2 (10:32→20:59)
[2022-08-04] MEDS: MENTHOL/ZINC OXIDE OINT 71 GM JAR TOP SCH ×2 (10:35→21:00)
[2022-08-05] MEDS: ALBUTEROL/IPRATROPIUM 3 ML NEB RESP TX SCH ×4 (01:14→20:39)
[2022-08-05] MEDS: INSULIN LISPRO 100 UNIT/ML SUBCUT SCH ×4 (01:26→19:17)
[2022-08-05 04:56] LABS: Basophils % 0.1 % (0.0-0.8); Eosinophils # 0.1 10*3/uL (0.0-0.87); Eosinophils % 0.4 % (0.00-10.9); Hematocrit 30.8 VOL% (35.7-47.0); Hemoglobin 9.2 GM/DL (12.0-16.0); Immature Granulocytes % 0.4 %; Immature Granulocytes Absolute 0.06 #; Lymphocytes # 0.6 10*3/uL (1.4-4.0); Lymphocytes % 4.1 % (21.3-54.2); Mean Corpuscular HGB Conc 29.9 GM/DL (32-36); Mean Corpuscular Volume 85.6 FL (87-102); Mean Platelet Volume 10.1 FL (9.6-12.0); Monocytes # 0.7 10*3/uL (0.11-0.8); Monocytes % 4.7 % (1.7-12.7); Neutrophils % 90.3 % (38.7-73.9); Platelet Count 262 T/CUMM (130-400); Red Cell Distribution Width 30.3 % (9.3-17.3); White Blood Count 14.53 T/CUMM (4-12)
[2022-08-05 05:18] LABS: Calcium 8.2 MG/DL (8.5-10.1); Osmolality,Calculated 288.6 MOS/KG (273-304); Potassium 3.7 MMOL/L (3.5-5.1)
[2022-08-05 05:22] LABS: Anisocytosis 1+; Hypochromia 1+; Lymphocytes 5 % (20-55); Microcytosis 1+; Target Cells Slight; Total Cells Counted 100
[2022-08-05 05:23] LABS: Ovalocytes Slight
[2022-08-05] MEDS: MENTHOL/ZINC OXIDE OINT 71 GM JAR TOP SCH ×2 (09:37→21:22)
[2022-08-05] MEDS: PANTOPRAZOLE 40 MG VIAL IV SCH ×2 (14:55→21:22)
[2022-08-06] MEDS: INSULIN LISPRO 100 UNIT/ML SUBCUT SCH ×2 (00:58→05:58)
[2022-08-06] MEDS: ALBUTEROL/IPRATROPIUM 3 ML NEB RESP TX SCH ×3 (03:00→13:57)
[2022-08-06 05:23] LABS: Basophils % 0.1 % (0.0-0.8); Eosinophils # 0.1 10*3/uL (0.0-0.87); Eosinophils % 0.3 % (0.00-10.9); Hematocrit 29.1 VOL% (35.7-47.0); Hemoglobin 8.5 GM/DL (12.0-16.0); Immature Granulocytes % 0.5 %; Lymphocytes # 0.5 10*3/uL (1.4-4.0); Lymphocytes % 2.8 % (21.3-54.2); Mean Corpuscular HGB Conc 29.2 GM/DL (32-36); Mean Corpuscular Volume 87.1 FL (87-102); Mean Platelet Volume 9.8 FL (9.6-12.0); Monocytes # 0.7 10*3/uL (0.11-0.8); Monocytes % 3.8 % (1.7-12.7); Neutrophils % 92.5 % (38.7-73.9); Platelet Count 306 T/CUMM (130-400); Red Blood Count 3.34 MC/CUMM (3.8-5.5); Red Cell Distribution Width 29.9 % (9.3-17.3)
[2022-08-06 05:44] LABS: Calcium 8.2 MG/DL (8.5-10.1); Osmolality,Calculated 302.4 MOS/KG (273-304); Potassium 3.5 MMOL/L (3.5-5.1)
[2022-08-06 05:54] LABS: Lymphocytes 2 % (20-55); Platelet Estimate Adequate; Total Cells Counted 100
[2022-08-06 05:55] LABS: Hypochromia Slight; Microcytosis Slight
[2022-08-06] MEDS: MENTHOL/ZINC OXIDE OINT 71 GM JAR TOP SCH (11:16)
[2022-08-06] MEDS: PANTOPRAZOLE 40 MG VIAL IV SCH (11:21)
[2022-08-06 16:07] VITALS: BP 131/65
== END 2022-08-06 16:04 | disposition hospice, home (50) | DRG 853 ==
LOC: N.ED 20:39 → SUATTDRO 07-23 05:18 → N.EDINP 07-23 05:18 → N.CC 07-23 05:38 → N.TELEN 08-02 16:33
PROVIDERS: ADMIT Family Medicine; ATTEND Internal Medicine
PROC: COLONHP (2022-07-27 07:05)